=== PATIENT | female | born 1990 | race Caucasian/White ===

== ENCOUNTER 2018-11-15 15:14 | Inpatient (IN) | payer OTHER ==
[~2018-11-15] VITALS: Ht 172.7 cm; Wt 83.0 kg
[~2018-11-15 15:14] MED LIST: CEPHALEXIN500 MG PO; NORCO 5-325 TA1 EACH PO
--- NOTE | 2018-11-16 11:42 | PR ---
[facility] [address] [facility] [place], [place] [address] Signed Progress Notes IP Datetime Report Generated by CPN: 11/16/2018 11:42 PROGRESS NOTES: [id number] Impression: Normal progression of labor; Reassuring heart rate Plan: Continue present management VITAL SIGNS: [id number] Vital Signs: Reviewed; Within Normal Limits EXAM: [id number] Dilatation: 5.0 Effacement: 80 Station: -2 Uterine Contractions: q3-4 minutes MEMBRANES: [id number] Comments: Pt seen and evaluated. Doing very well. Starting to feel contractions but tolerating well. Considering epidural. Continue expectant management. All questions answered Fetus A: [id number] FHR Baseline: 125 Variability: Moderate 6-25bpm Accelerations: 15X15 Decelerations: None FHR Category: Category I Presentation: Vertex Comments on Fetus A: No evidence of metabolic acidosis Fetus B: [id number] Signing Physician: Roxana Stewart DO Copies: ~ *Electronically Signed* 11/16/18 1142 ROXANA STEWART DO PATIENT NAME: TANIA CURIEL PROGRESS NOTE DATE OF : 89 PHYSICIAN: ROXANA STEWART DO RPT #: [id number] REPORT IS CONFIDENTIAL AND NOT TO BE RELEASED WITHOUT AUTHORIZATION
--- NOTE | 2018-11-16 14:58 | PR ---
[facility] [address] [facility] [place], [place] [address] Signed Progress Notes IP Datetime Report Generated by CPN: 11/16/2018 14:58 PROGRESS NOTES: [id number] Impression: Normal progression of labor Procedures: Sterile Vag Exam Plan: Augmentation Other Informed Consents: Pitocin, IUPC VITAL SIGNS: [id number] Vital Signs: Reviewed; Within Normal Limits EXAM: [id number] Dilatation: 6.0 Effacement: 80 Station: -2 Uterine Contractions: rare MEMBRANES: [id number] Comments: Pt seen and examined. Doing well. Ambulating well, and reports contractions infrequent and non-painful. No cervical change noted. Discussed augmentation w/ pitocin, which pt agrees to. Will start low dose pit. If no change after _2 hrs of regular ctxs, will place IUPC. Pt understands and agrees Fetus A: [id number] FHR Baseline: 125 Variability: Moderate 6-25bpm Accelerations: 15X15 Decelerations: None FHR Category: Category I Presentation: Vertex Other Presentation: MISSY Comments on Fetus A: No evidence of metabolic acidosis Fetus B: [id number] Signing Physician: Roxana Stewart DO Copies: ~ *Electronically Signed* 11/16/18 6347 ROXANA STEWART DO PATIENT NAME: TANIA CURIEL PROGRESS NOTE DATE OF : 92 PHYSICIAN: ROXANA STEWART DO RPT #: [id number] REPORT IS CONFIDENTIAL AND NOT TO BE RELEASED WITHOUT AUTHORIZATION
--- NOTE | 2018-11-16 18:16 | PR ---
[facility] [address] [place], [place] [address] Signed Progress Notes IP Datetime Report Generated by BRUNA: 11/16/2018 18:16 PROGRESS NOTES: [id number] Impression: Normal progression of labor; Reassuring heart rate Procedures: Sterile Vag Exam Plan: Continue present management; Anticipate Vaginal Delivery Informed Consent Obtain: Vaginal Delivery Other Informed Consents: Pitocin, IUPC VITAL SIGNS: [id number] Vital Signs: Reviewed; Within Normal Limits EXAM: [id number] Dilatation: 9.0 Effacement: 100 Station: -1 Uterine Contractions: rare MEMBRANES: [id number] Comments: Pt seen and examined. Doing well. Comfortable w/ epidural. Feeling some pressure. Reviewed FHT which is overall reassuring. Pt has been repositioned. Will continue intrauterine recussitation as needed. Anticipate soon. Fetus A: [id number] FHR Baseline: 135 Variability: Moderate 6-25bpm Accelerations: 15X15 Decelerations: Late; Variable FHR Category: Category II Presentation: Vertex Other Presentation: MISSY Comments on Fetus A: Reassuring FHT w/ moderate variability. Will continue to monitor closely Fetus B: [id number] Signing Physician: Roxana Stewart DO Copies: ~ *Electronically Signed* 11/16/18 1811 ROXANA STEWART DO PATIENT NAME: TANIA CURIEL PROGRESS NOTE DATE OF : 92 PHYSICIAN: ROXANA STEWART DO RPT #: [id number] REPORT IS CONFIDENTIAL AND NOT TO BE RELEASED WITHOUT AUTHORIZATION
--- NOTE | 2018-11-16 19:49 | PR ---
[facility] [address] [facility] [place], [place] [address] Signed Progress Notes IP Datetime Report Generated by CPN: 11/16/2018 19:49 PROGRESS NOTES: [id number] Impression: Normal progression of labor Procedures: Sterile Vag Exam Plan: Continue present management; Anticipate Vaginal Delivery Informed Consent Obtain: Vaginal Delivery Other Informed Consents: Pitocin, IUPC VITAL SIGNS: [id number] Vital Signs: Reviewed; Within Normal Limits EXAM: [id number] Dilatation: 10.0 Effacement: 100 Station: 1 Uterine Contractions: q1-4 minutes MEMBRANES: [id number] Comments: Pt seen and evaluated. Complete and feeling urge to push. Will prepare for . FHT reassuring. Anticipate soon Fetus A: [id number] FHR Baseline: 120 Variability: Moderate 6-25bpm Accelerations: 15X15 Decelerations: None FHR Category: Category I Presentation: Vertex Other Presentation: MISSY Comments on Fetus A: No evidence of metabolic acidosis Fetus B: [id number] Signing Physician: Roxana Stewart DO Copies: ~ *Electronically Signed* 11/16/181948 ROXANA STEWART DO PATIENT NAME: TANIA CURIEL PROGRESS NOTE DATE OF : 92 PHYSICIAN: ROXANA STEWART DO RPT #: [id number] REPORT IS CONFIDENTIAL AND NOT TO BE RELEASED WITHOUT AUTHORIZATION
--- NOTE | 2018-11-16 20:22 | PR ---
[facility] [address] [facility] [place], [place] [address] Signed Progress Notes IP Datetime Report Generated by CPN: 11/16/2018 20:22 PROGRESS NOTES: [id number] Impression: Normal progression of labor Procedures: Sterile Vag Exam Plan: Continue present management; Anticipate Vaginal Delivery Informed Consent Obtain: Vaginal Delivery Other Informed Consents: Pitocin, IUPC VITAL SIGNS: [id number] Vital Signs: Reviewed; Within Normal Limits EXAM: [id number] Dilatation: 10.0 Effacement: 100 Station: 1 Uterine Contractions: q2-3 mintues MEMBRANES: [id number] Comments: Pt seen and examined. Doing well. Pushing well w/ contractions. Baby tolerating well. Anticipate soon. Fetus A: [id number] FHR Baseline: 120 Variability: Moderate 6-25bpm Accelerations: 15X15 Decelerations: Variable FHR Category: Category II Presentation: Vertex Other Presentation: MISSY Comments on Fetus A: baby tolerating pushing very well. No evidence of metabolic acidosis Fetus B: [id number] Signing Physician: Roxana Stewart DO Copies: ~ *Electronically Signed* 11/16/182021 ROXANA STEWART DO PATIENT NAME: TANIA CURIEL PROGRESS NOTE DATE OF : 92 PHYSICIAN: ROXANA STEWART DO RPT #: [id number] REPORT IS CONFIDENTIAL AND NOT TO BE RELEASED WITHOUT AUTHORIZATION
--- NOTE | 2018-11-17 07:15 | PR ---
[facility] [address] [facility] [place], [place] [address] Signed PP Progress Notes Datetime Report Generated by CPN: 11/17/2018 07:14 SUBJECTIVE: [id number] Pain: Within normal limits Nausea/Vomiting: Denies Flatus: Yes Bowel Movement: No Vital Signs: [id number] Vital Signs: Reviewed; Within Normal Limits EXAM: [id number] Cardiovascular: Normal Respiratory: Normal Abdomen/Uterus: Normal Lochia: Normal Vulva/Perineum: Not Done Breasts: Not Done CVA Tenderness: Normal Extremities: Normal Incision: Not Applicable Progress: Normal Exam Comments: Fundus firm U-2 nontender. RN reports stable vulvar edema. Vulvar exam deferred today IMPRESSION/PLAN/PROCEDURES: [id number] Impression: Normal progression Plan: Continue present management Progress Notes: Pt seen and examined. Doing well. Ambulating, voiding, and tolerating full diet. Pain and lochia minimal. well. Denies fevers/chills/other complaints. Anticipate d/c home tomorrow. Continue routine pp care. Signing Physician: Roxana Stewart DO Copies: ~ *Electronically Signed* 11/17/18 0714 ROXANA STEWART DO PATIENT NAME: TANIA CURIEL PROGRESS NOTE DATE OF : 92 PHYSICIAN: ROXANA STEWART DO RPT #: [id number] REPORT IS CONFIDENTIAL AND NOT TO BE RELEASED WITHOUT AUTHORIZATION
== END 2018-11-18 12:45 | disposition home or self-care (01) | DRG 807 ==
LOC: FBC 11-16 06:49
PROVIDERS: ADMIT Obstetrics & Gynecology
PROC: 10E0XZZ Delivery of Products of Conception, External Approach (ICD-10-PCS; principal; 2018-11-16)
PROC: 0KQM0ZZ Repair Perineum Muscle, Open Approach (ICD-10-PCS; 2018-11-16)
PROC: 10907ZC Drainage of Amniotic Fluid, Therapeutic from Products of Conception, Via Natural or Artificial Opening (ICD-10-PCS; 2018-11-16)
PROC: 10H07YZ Insertion of Other Device into Products of Conception, Via Natural or Artificial Opening (ICD-10-PCS; 2018-11-16)
PROC: 00HU33Z Insertion of Infusion Device into Spinal Canal, Percutaneous Approach (ICD-10-PCS; 2018-11-16)
PROC: 3E0R3BZ Introduction of Anesthetic Agent into Spinal Canal, Percutaneous Approach (ICD-10-PCS; 2018-11-16)
DX: O99.284 Endocrine, nutritional and metabolic diseases complicating childbirth (principal); Z37.0 Single live birth; E03.9 Hypothyroidism, unspecified; Z3A.39 39 weeks gestation of pregnancy; O76 Abnormality in fetal heart rate and rhythm complicating labor and delivery; O70.1 Second degree perineal laceration during delivery; O36.63X0 Maternal care for excessive fetal growth, third trimester, not applicable or unspecified; Z79.899 Other long term (current) drug therapy; Z86.19 Personal history of other infectious and parasitic diseases
CPT/HCPCS: 01960; 36415; 85027; J2590; J7120; Q0163